=== PATIENT | male | born 1955 | race Hispanic/Latino ===

== ENCOUNTER 2020-05-27 17:42 | Emergency (ER) | payer SELFPAY ==
[2020-05-27] MEDS ORDERED: ASPIRIN 325 MG TAB PO ONE (18:29)
[2020-05-27 18:54] LABS: Hematocrit 35.9 % (35.5-45.6); Hemoglobin 12.4 gm/dl (11.8-15.2); Mean Corpuscular HGB Conc 35 % (32-34); Mean Corpuscular Volume 86 fl (84-94); Platelet Count 207 K/mm3 (140-440); Red Blood Count 4.16 M/mm3 (3.65-5.03)
[2020-05-27 19:06] LABS: BUN/Creatinine Ratio 11; Blood Urea Nitrogen 9 mg/dL (9-20); Calcium 9.2 mg/dL (8.4-10.2); Hemolysis Index 14
--- NOTE | 2020-05-27 19:20 | XRay Report ---
XR chest 1V ap INDICATION / CLINICAL INFORMATION: Chest Pain. COMPARISON: None available. FINDINGS: SUPPORT DEVICES: None. HEART /PULMONARY VASCULATURE: No significant abnormality. LUNGS / PLEURA: Focal patchy opacity in the left lung base . Right lung is clear. No pleural effusion or pneumothorax ADDITIONAL FINDINGS: No significant additional findings. IMPRESSION: Airspace opacity in the left lung base, which may reflect atelectasis or developing infiltrate. Signer Name: Mikel Su MD Signed: 05/27/2020 7:16 PM Workstation Name: [id number]
[2020-05-27 19:45] LABS: RBC Morphology Normal; Total Cells Counted 100
--- NOTE | 2020-05-27 20:05 | Emergency Department Report ---
Blank Doc - Documentation Documentation: 64-year-old male resident of the of [facility] emerge department complaining of continued cough congestion coryza just finished taking his last antibiotic for his pneumonia wanted to be reevaluated to be sure he was improving as he has been having some sharp chest pains off and on to the left side however chest pain is not associated with nausea or vomiting or presyncope. This initial assessment/diagnostic orders/clinical plan/treatment(s) is/are subject to change based on patients health status, clinical progression and re- assessment by fellow clinical providers in the ED. Further treatment and workup at subsequent clinical providers discretion. Patient/guardian urged not to elope from the ED as their condition may be serious if not clinically assessed and managed. Initial orders include: Cardiac labs were already ordered I did review his chest x-ray and his first set of labs patient is ambulatory speaks in full sentences stable vitals most likely will be discharged with an inhaler and cough medication
--- NOTE | 2020-05-27 21:54 | Emergency Department Report ---
ED Chest Pain HPI - General Chief Complaint: Chest Pain Stated Complaint: CHEST PAIN/DEYDRATION/POSSIBLE FEVER Time Seen by Provider: 05/27/20 20:05 Source: patient Mode of arrival: Ambulatory Limitations: No Limitations - History of Present Illness Initial Comments: 64-year-old male with past medical history of diabetes and hypertension as well as peripheral peripheral neuropathy presents emergency department complaining of cough congestion chest pain and shortness of breath off and on states he is just now completing his last antibiotic for his pneumonia which he is still still recovering but was worried about the symptoms and wanted to be his cardiac to be evaluated. Reports no hemoptysis no hematemesis hematochezia reports no had a few of chills and sweats as well. Currently residing at [facility] in the current program with few of the persons whom whom he resides with has some nausea and vomiting symptoms -: Gradual Pain Location: left chest Severity: mild Quality: dull Consistency: constant Improves With: nothing Worsens With: nothing Other Symptoms: cough Treatments Prior to Arrival: none - Related Data Previous Rx's Medication Instructions Recorded Last Taken Type Albuterol Mdi (or & Nicu Only) 1 puff IH Q4-6H PRN #1 inha 05/27/20 Unknown Rx [ProAir HFA Inhaler] guaiFENesin/CODEINE [Robitussin AC] 5 ml PO Q6H PRN #120 ml 05/27/20 Unknown Rx Allergies Allergy/AdvReac Type Severity Reaction Status Date / Time ibuprofen Allergy Swelling Verified 05/27/20 18:26 lisinopril Allergy Swelling Verified 05/27/20 18:26 pregabalin [From Lyrica] Allergy Swelling Verified 05/27/20 18:26 sertraline [From Zoloft] Allergy Unknown Verified 05/27/20 18:26 Heart Score - HEART Score History: Slightly suspicious EKG: Normal Age: 45-65 Risk factors: 1-2 risk factors Troponin: < normal limit HEART Score: 2 ED Review of Systems ROS: Stated complaint: CHEST PAIN/DEYDRATION/POSSIBLE FEVER Other details as noted in HPI Comment: All other systems reviewed and negative ED Past Medical Hx - Past Medical History Hx Hypertension: Yes Hx Diabetes: Yes Additional medical history: pneumonia - Surgical History Hx Appendectomy: Yes - Medications Home Medications: Home Medications Medication Instructions Recorded Confirmed Last Taken Type Albuterol Mdi (or & Nicu Only) 1 puff IH Q4-6H PRN #1 inha 05/27/20 Unknown Rx [ProAir HFA Inhaler] guaiFENesin/CODEINE [Robitussin AC] 5 ml PO Q6H PRN #120 ml 05/27/20 Unknown Rx ED Physical Exam - General Limitations: No Limitations General appearance: alert, in no apparent distress - Head Head exam: Present: atraumatic, normocephalic - Eye Eye exam: Present: normal appearance, PERRL, EOMI Pupils: Present: normal accommodation - ENT ENT exam: Present: normal exam, mucous membranes moist - Neck Neck exam: Present: normal inspection, full ROM - Respiratory Respiratory exam: Present: normal lung sounds bilaterally. Absent: respiratory distress, wheezes, rhonchi, chest wall tenderness, accessory muscle use - Cardiovascular Cardiovascular Exam: Present: regular rate, normal rhythm. Absent: systolic murmur, diastolic murmur, rubs, gallop - GI/Abdominal GI/Abdominal exam: Present: soft, normal bowel sounds. Absent: tenderness, guarding, hyperactive bowel sounds - Rectal Rectal exam: Present: deferred - Extremities Exam Extremities exam: Present: normal inspection - Back Exam Back exam: Present: normal inspection. Absent: CVA tenderness (R), CVA tenderness (L), paraspinal tenderness - Neurological Exam Neurological exam: Present: alert, oriented X3, CN II-XII intact - Psychiatric Psychiatric exam: Present: normal affect, normal mood. Absent: anxious, flat affect, homicidal ideation, suicidal ideation - Skin Skin exam: Present: warm, dry, intact, normal color. Absent: rash, diaphoretic, erythema, urticaria ED Course Vital Signs 05/27/20 05/27/20 18:28 22:19 Temperature 98.1 F Pulse Rate 83 74 Respiratory 20 18 Rate Blood Pressure 171/108 Blood Pressure 156/86 [Right] O2 Sat by Pulse 97 98 Oximetry JOSH score - Josh Score Age > 65: (0) No Aspirin use within the Past 7 Days: (0) No 3 or more CAD Risk Factors: (0) No 2 or more Angina events in past 24 hrs: (0) No Known CAD with more than 50% Stenosis: (0) No Elevated Cardiac Markers: (0) No ST Deviation Greater than 0.5mm: (0) No JOSH Score: 0 ED Medical Decision Making - Lab Data Result diagrams: 05/27/20 18:34 05/27/20 18:34 Lab Results 05/27/20 05/27/20 05/27/20 Range/Units 18:34 18:34 21:08 WBC 7.0 (4.5-11.0) K/mm3 RBC 4.16 (3.65-5.03) M/mm3 Hgb 12.4 (11.8-15.2) gm/dl Hct 35.9 (35.5-45.6) % MCV 86 (84-94) fl MCH 30 (28-32) pg MCHC 35 H (32-34) % RDW 17.0 H (13.2-15.2) % Plt Count 207 (140-440) K/mm3 Baso % (Auto) 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 Add Manual Diff Complete Total Counted 100 Seg Neuts % (Manual) 67.0 (40.0-70.0) % Lymphocytes % (Manual) 25.0 (13.4-35.0) % Monocytes % (Manual) 6.0 (0.0-7.3) % Eosinophils % (Manual) 1.0 (0.0-4.3) % Basophils % (Manual) 1.0 (0.0-1.8) % Nucleated RBC % Not Reportable Seg Neutrophils # Man 4.7 (1.8-7.7) K/mm3 Band Neutrophils # 0.0 K/mm3 Lymphocytes # (Manual) 1.8 (1.2-5.4) K/mm3 Abs React Lymphs (Man) 0.0 K/mm3 Monocytes # (Manual) 0.4 (0.0-0.8) K/mm3 Eosinophils # (Manual) 0.1 (0.0-0.4) K/mm3 Basophils # (Manual) 0.1 (0.0-0.1) K/mm3 Metamyelocytes # 0.0 K/mm3 Myelocytes # 0.0 K/mm3 Promyelocytes # 0.0 K/mm3 Blast Cells # 0.0 K/mm3 WBC Morphology Not Reportable Hypersegmented Neuts Not Reportable Hyposegmented Neuts Not Reportable Hypogranular Neuts Not Reportable Smudge Cells Not Reportable Toxic Granulation Not Reportable Toxic Vacuolation Not Reportable Dohle Bodies Not Reportable Pelger-Huet Anomaly Not Reportable Crow Rods Not Reportable Platelet Estimate Not Reportable Clumped Platelets Not Reportable Plt Clumps, EDTA Not Reportable Large Platelets Not Reportable Giant Platelets Not Reportable Platelet Satelliting Not Reportable Plt Morphology Comment Not Reportable RBC Morphology Normal Dimorphic RBCs Not Reportable Polychromasia Not Reportable Hypochromasia Not Reportable Poikilocytosis Not Reportable Anisocytosis Not Reportable Microcytosis Not Reportable Macrocytosis Not Reportable Spherocytes Not Reportable Pappenheimer Bodies Not Reportable Sickle Cells Not Reportable Target Cells Not Reportable Tear Drop Cells Not Reportable Ovalocytes Not Reportable Helmet Cells Not Reportable Hess-Ogilvie Bodies Not Reportable Brinklow Rings Not Reportable [place] Cells Not Reportable Bite Cells Not Reportable Crenated Cell Not Reportable Elliptocytes Not Reportable Acanthocytes (Spur) Not Reportable Rouleaux Not Reportable Hemoglobin C Crystals Not Reportable Schistocytes Not Reportable Malaria parasites Not Reportable Ej Bodies Not Reportable Hem Pathologist Commnt No Sodium 132 L (137-145) mmol/L Potassium 4.7 (3.6-5.0) mmol/L Chloride 95.3 L (98-107) mmol/L Carbon Dioxide 24 (22-30) mmol/L Anion Gap 17 mmol/L BUN 9 (9-20) mg/dL Creatinine 0.8 (0.8-1.3) mg/dL Estimated GFR > 60 ml/min BUN/Creatinine Ratio 11 % Glucose 137 H (75-100) mg/dL Calcium 9.2 (8.4-10.2) mg/dL Troponin T < 0.010 < 0.010 (0.00-0.029) ng/mL - EKG Data EKG shows normal: sinus rhythm Rate: normal - EKG Data Interpretation: normal EKG - Radiology Data Radiology results: report reviewed [facility] [address] [place] [address] XRay Report Signed Patient: BALAJI LOERA MR#: [id number] 9 : 1955 Acct:[id number] Age/Sex: 64 / M ADM Date: 05/27/20 Loc: ED Attending Dr: Ordering Physician: ED MD ARI Date of Service: 05/27/20 Procedure(s): XR chest 1V ap Accession Number(s): [id number] cc: ED DOC, Fluoro Time In Minutes: XR chest 1V ap INDICATION / CLINICAL INFORMATION: Chest Pain. COMPARISON: None available. FINDINGS: SUPPORT DEVICES: None. HEART /PULMONARY VASCULATURE: No significant abnormality. LUNGS / PLEURA: Focal patchy opacity in the left lung base . Right lung is clear. No pleural effusion or pneumothorax ADDITIONAL FINDINGS: No significant additional findings. IMPRESSION: Airspace opacity in the left lung base, which may reflect atelectasis or developing infiltrate. Signer Name: Mandy Su MD Signed: 05/27/2020 7:16 PM Workstation Name: [id number] Transcribed By: JS Dictated By: MANDY SU MD Electronically Authenticated By: MANDY SU MD Signed Date/Time: 05/27/201915 DD/ 14 TD/TT: - Medical Decision Making This patient presents with chest pain that is very unlikely angina or acute coronary syndrome. The emergency department evaluation has not identified any cause for suspicion that this chest pain has a cardiac etiology. Based on their history, EKG (which showed no evidence of ischemia or infarction) and imaging, in addition to the patient's physical exam, I see no evidence at this time for a malignant etiology for the patient's chest pain. There is no acute evidence for pulmonary embolus, acute myocardial infarction, pneumothorax, Boerhaeve syndrome, cardiac tamponade, thoracic artery dissection, or any other emergent cardiac, pulmonary or aortic pathology. Given the low pre-test probability for cardiac etiology of chest pain and the absence of any sign of ischemia or infarction, discharge for outpatient follow-up and further evaluation is reasonable. I have explained to the patient that even though a cardiac problem is very unlikely, follow-up and further testing is required to reduce further the already small uncertainty that exists. Other life-threatening diagnoses have been considered. The patient understands the need to return immediately if their symptoms worsen or they develop any new symptoms, and not to engage in any significant exertional activity until follow-up is obtained. Critical care attestation.: If time is entered above; I have spent that time in minutes in the direct care of this critically ill patient, excluding procedure time. ED Disposition Clinical Impression: Chest pain, Cough Disposition: - TO HOME OR SELFCARE Is pt being admited?: No Does the pt Need Aspirin: No Condition: Stable Instructions: Cough, Adult, [id number], Chest Wall Pain, [id number], Nonspecific Chest Pain, Adult, Chest Pain (ED) Prescriptions: Albuterol Mdi (or & Nicu Only) [ProAir HFA Inhaler] 1 puff IH Q4-6H PRN #1 inha PRN Reason: Cough guaiFENesin/CODEINE [Robitussin AC] 5 ml PO Q6H PRN #120 ml PRN Reason: Cough Referrals: [facility] [Provider Group] - 3-5 Days
[2020-05-27 22:19] VITALS: BP 156/86
== END 2020-05-27 22:20 | disposition home or self-care (01) ==
LOC: ED 17:42
DX: R07.9 Chest pain, unspecified (principal); R05 Cough; I10 Essential (primary) hypertension; E11.9 Type 2 diabetes mellitus without complications; Z90.49 Acquired absence of other specified parts of digestive tract; Z79.899 Other long term (current) drug therapy; Z88.6 Allergy status to analgesic agent; Z88.8 Allergy status to other drugs, medicaments and biological substances
CPT/HCPCS: 36415; 71045; 80048; 84484; 85007; 85025; 93005